=== PATIENT | female | born 1995 | race Caucasian/White ===

== ENCOUNTER → 2017-02-15 | Day surgery (SDC) | payer OTHER ==
[~2017-02-15] VITALS: Ht 167.6 cm; Wt 69.0 kg
[~2017-02-15] MED LIST: 0.9% Sodium Chloride 1,000 ML IV SCH; RANI150T11 PO; Sodium Chloride LOK Flush 10 mL Syringe IV PRN; fentaNYL-PF 50 mCg/mL 2 mL Inj IVPUSH PRN
[2017-02-15 14:18] VITALS: BP 123/74; PULSE 65; RESP 16; O2SAT 98
[2017-02-15 15:56] VITALS: BP 104/46; PULSE 67; RESP 15; O2SAT 100
[2017-02-15 16:01] VITALS: BP 97/50; PULSE 55; RESP 15; O2SAT 100
[2017-02-15 16:11] VITALS: BP 95/53; PULSE 50; RESP 16; O2SAT 100
[2017-02-15 16:21] VITALS: BP 120/71; PULSE 55; RESP 16; O2SAT 99
--- NOTE | 2017-02-15 20:38 | ENDO ---
[address] [address] ENDOSCOPY PROCEDURE PATIENT: EUGENE MENDOZA : 1995 MR#: [id number] ADMIT: 02/15/2017 JOB ID: [id number] PRIMARY PROVIDER: Kathy Lainez MD. PROCEDURE: Esophagogastroduodenoscopy with biopsy, and a colonoscopy. INDICATIONS: A 21-year-old female with symptoms of abdominal pain of uncertain etiology, altered bowel habits. A stool PCR was negative. Lab work is still pending. EQUIPMENT: GIF-H180J and a PCF-H190DL. SEDATION: 9 mg Versed, 150 mcg fentanyl. COMPLICATIONS: None identified. BOWEL PREPARATION: Fair, adequate exam. PROCEDURE INFORMATION: After the risks and benefits were explained, written and verbal informed consent was obtained, the patient was brought into the endoscopy suite and placed into the left lateral decubitus position. Sedation was achieved using the above-stated medications with the addition of oxygen via nasal cannula. The scope was introduced into the mouth through the bite block, and advanced under direct visualization through the oropharynx, esophagus, stomach, and onto the second portion of the duodenum. The scope was slowly withdrawn to carefully examine the mucosa for any defects or lesions. Retroflexed views were accomplished in the stomach. The stomach was decompressed, the scope removed from the patient who tolerated the procedure well. The patient was then turned around, digital rectal examination accomplished. No significant pathology appreciated. The scope was introduced into the rectum and advanced under direct visualization to the level of the cecum, as identified by the appendiceal orifice and ileocecal valve. The terminal ileum was briefly accessed. The scope was then slowly withdrawn to carefully examine the mucosa for any defects or lesions. Multiple direct views were made through the dentate line for exclusion of pathology. The colon was decompressed. The scope removed from the patient who tolerated the procedure well. FINDINGS: 1. Duodenum: This appeared visually unremarkable from the bulb through to the second portion. Random biopsies from D2 were acquired for exclusion of sprue. 2. Stomach: No outlet obstruction. No ulcers. No mass lesions. Retroflexed views of the LES were rather unremarkable. There was a diffuse macronodular gastropathy seen throughout and random biopsies were taken for exclusion of Helicobacter or any other underlying histopathology. 3. Esophagus: The squamocolumnar junction correlated with the top of the gastric folds. The GE junction was at 39 cm from the incisors. No acute erosive changes. No strictures. No mass lesions. 4. Terminal ileum: This appeared visually normal. 5. Colon: No evidence of any macroscopic colitis throughout. No significant polyps or mass lesions. Moderately twisty left colon. ENDOSCOPIC DIAGNOSES: 1. Subtle sliding hiatal hernia (not mentioned above). 2. Gastropathy. 3. Visually normal colonoscopy and terminal ileoscopy. RECOMMENDATIONS: 1. Await histopathology. 2. If Helicobacter is found, it will need to be eradicated with standard triple therapy. 3. Await laboratory results. 4. For now, continue to avoid nonsteroidal anti-inflammatories and continue with the twice daily ranitidine.
--- NOTE | 2017-02-17 15:29 | PATH ---
SURGICAL PATHOLOGY Attending Physician:Chalino Wadsworth CASE STATUS: Signed Out PATIENT NAME: EUGENE MENDOZA PID: [id number] : 1995 DATE COLLECTED:02/15/2017 00:00 SPECIMEN: 1: Duodenum, Biopsy 2: Gastric, Biopsy CLINICAL HISTORY: 1). DUODENUM BIOPSY 2). GASTRIC BIOPSY (RULE OUT H.PYLORI, PLEASE TEST FOR H.PYLORI) FINAL DIAGNOSIS: 1. Duodenum, Biopsy: Portions of duodenal mucosa with no diagnostic abnormality. Negative for active inflammation, features of sprue, dysplasia, and malignancy. 2. Gastric Biopsy: Portions of gastric antral and gastric body-type mucosa with chronic active gastritis. Organisms suspicious for H. pylori identified by H&E stain. Immunohistochemistry studies pending; results will be reported as an addendum. Negative for intestinal metaplasia, dysplasia and malignancy. ICD10: K29.7 GROSS DESCRIPTION: The specimen is received in two formalin filled containers labeled with the patient's name. 1). The specimen is labeled "duodenum" and consists of 2 portions of tissue which aggregate to 0.3 x 0.2 x 0.2 CM. The specimen is entirely submitted in cassette 1A. 2). The specimen is labeled "gastric" and consists of a 0.3 x 0.3 x 0.2 CM portion of tissue which is entirely submitted in cassette 2A. 02/16/2017OH ICD-9 CODES: CPT CODES: 1: 10774 2: 56901, 54028 PROCEDURE/ADDENDA: Immunohistochemistry SPI Interpretation {Not Entered} Results-Comments The purpose of this addendum is to report the immunohistochemical stain performed to evaluate for Helicobacter organisms. The immunohistochemical stain is positive, and the positive control reacted appropriately. Diagnosis 2.STOMACH, BIOPSY: IMMUNOHISTOCHEMISTRY POSITIVE FOR HELICOBACTER ORGANISMS. This test was developed and its performance characteristics determined by [employer]. It has not been cleared or approved by the U. S. Food and Drug Administration. The FDA has determined that such clearance or approval is not necessary. This test is used for clinical purposes. It should not be regarded as investigational or for research. Electronically Signed Out J Carlos Clancy MD, PhD Electronically Signed Out Melisa Kaminski MD [facility], [address], [place] [address] Technical component performed at [facility], [address], [place], [address]
== END | disposition home or self-care (01) ==
LOC: END 00:06
PROVIDERS: ATTEND Internal Medicine Gastroenterology
DX: K29.50 Unspecified chronic gastritis without bleeding (principal); K44.9 Diaphragmatic hernia without obstruction or gangrene; K31.9 Disease of stomach and duodenum, unspecified; R19.4 Change in bowel habit; R10.9 Unspecified abdominal pain; Z79.899 Other long term (current) drug therapy; Z88.5 Allergy status to narcotic agent
CPT/HCPCS: 43239; 45378; 99153; G0500; J2250; J3010; J7030

== ENCOUNTER 2017-04-01 23:42 | Emergency (ER) | payer OTHER ==
[~2017-04-01] VITALS: Ht 162.6 cm; Wt 58.2 kg
[~2017-04-01 23:42] MED LIST changes: -0.9% Sodium Chloride 1,000 ML IV SCH; -Sodium Chloride LOK Flush 10 mL Syringe IV PRN; -fentaNYL-PF 50 mCg/mL 2 mL Inj IVPUSH PRN
[2017-04-01 23:51] VITALS: BP 119/76; PULSE 91; RESP 16; O2SAT 100
[2017-04-02] MEDS ORDERED: 0.9% Sodium Chloride 1,000 ML IV ONE (00:07)
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
[2017-04-02] MEDS ORDERED: Ondansetron 2 mg/mL 2 mL Inj IVPUSH ONE (00:10)
[2017-04-02 00:33] LABS: BASOPHILS % (AUTO) 0.4 % (0-3); EOSINOPHILS % (AUTO) 0.6 % (0-5); Mean Corpuscular Hemoglobin 30.7 pg (27.0-35.0); Mean Corpuscular Volume 87.9 fL (81-100); Platelet Count 303 bil/L (150-400)
[2017-04-02 02:25] LABS: APPEARANCE,URINE CLEAR (CLEAR,HAZY); COLOR,URINE STRAW (YELLOW); OCCULT BLOOD,URINE NEGATIVE (NEGATIVE); UROBILINOGEN,URINE NORMAL (NORMAL)
[2017-04-02 02:53] VITALS: BP 122/70; PULSE 88; RESP 16; O2SAT 100
[2017-04-02] MEDS ORDERED: LidocaineVisc 2%:Antacid 1:1 10 mL Syringe PO ONE (03:45)
[2017-04-02 06:59] VITALS: BP 120/68; PULSE 82; RESP 16; O2SAT 98
== END 2017-04-02 07:01 | disposition home or self-care (01) ==
LOC: SED 23:42
DX: F10.129 Alcohol abuse with intoxication, unspecified (principal); Z88.5 Allergy status to narcotic agent
CPT/HCPCS: 36415; 80053; 81000; 81002; 81025; 82075; 83690; 85025; 96361; 96374; 99285; G0480; J2405; J7030